=== PATIENT | male | born 1950 | race Caucasian/White ===

== ENCOUNTER 2016-08-08 13:46 | Emergency (ER) | payer MEDICARE, BC, OTHER ==
[2016-08-08 13:54] VITALS: RESP 18; TEMP 99.1
--- NOTE | 2016-08-08 14:41 | ED ---
General Adult HPI - General Chief complaint: Extremity Problem,Nontraumatic Stated complaint: Poss Blood Clot Time Seen by Provider: 08/08/16 14:15 Source: patient, RN notes reviewed, old records reviewed Mode of arrival: ambulatory Limitations: no limitations - History of Present Illness Initial comments: This is a 66-year-old male here for evaluation. This patient's presenting to ER for evaluation of right laboratory pain. Patient does have history of DVT concern of DVT in leg. Patient is alert centralis history, no recent surgeries. No shortness of breath or chest pain at this time. - Related Data Home Medications Medication Instructions Recorded Confirmed Aspirin EC [Ecotrin] 325 mg PO HS 08/08/16 08/08/16 Lisinopril [Zestril] 2.5 mg PO HS 08/08/16 08/08/16 Previous Rx's Medication Instructions Recorded Apixaban [Eliquis] 5 mg PO BID #28 tablet 08/08/16 Apixaban [Eliquis] 5 mg PO BID #60 tab 08/08/16 Allergies Allergy/AdvReac Type Severity Reaction Status Date / Time No Known Allergies Allergy Verified 08/08/16 15:15 Review of Systems ROS Statement: Those systems with pertinent positive or pertinent negative responses have been documented in the HPI. ROS Other: All systems not noted in ROS Statement are negative. Past Medical History Past Medical History: Coronary Artery Disease (CAD), Deep Vein Thrombosis (DVT) , Pulmonary Embolus (PE) History of Any Multi-Drug Resistant Organisms: None Reported Past Surgical History: Orthopedic Surgery Additional Past Surgical History / Comment(s): knee Past Psychological History: No Psychological Hx Reported Smoking Status: Never smoker Past Alcohol Use History: Rare Past Drug Use History: None Reported General Exam - General Exam Comments Initial Comments: Right lower extremity edema Limitations: no limitations General appearance: alert, in no apparent distress Head exam: Present: atraumatic, normocephalic, normal inspection Eye exam: Present: normal appearance, PERRL, EOMI. Absent: scleral icterus, conjunctival injection, periorbital swelling ENT exam: Present: normal exam, mucous membranes moist Neck exam: Present: normal inspection. Absent: tenderness, meningismus, lymphadenopathy Respiratory exam: Present: normal lung sounds bilaterally. Absent: respiratory distress, wheezes, rales, rhonchi, stridor Cardiovascular Exam: Present: regular rate, normal rhythm, normal heart sounds. Absent: systolic murmur, diastolic murmur, rubs, gallop, clicks GI/Abdominal exam: Present: soft, normal bowel sounds. Absent: distended, tenderness, guarding, rebound, rigid Extremities exam: Present: normal inspection, full ROM, normal capillary refill. Absent: tenderness, pedal edema, joint swelling, calf tenderness Back exam: Present: normal inspection Neurological exam: Present: alert, oriented X3, CN II-XII intact Psychiatric exam: Present: normal affect, normal mood Skin exam: Present: warm, dry, intact, normal color. Absent: rash Course Vital Signs 08/08/16 08/08/16 13:49 14:28 Temperature 99.1 F Pulse Rate 69 61 Respiratory 18 18 Rate Blood Pressure 123/72 134/78 O2 Sat by Pulse 96 95 Oximetry - Reevaluation(s) Reevaluation #1: 08/08/16 15:20 Patient informed of results of tests, questions answered Reevaluation #2: 08/08/16 15:20 Patient unsure of cause of prior DVT Medical Decision Making - Medical Decision Making 5 male here with right lower extremity edema and pain, positive DVT right lower extremity, patient will be discharged home on anticoagulation - Radiology Data Radiology results: report reviewed (Ultrasound positive for DVT right lower extremity), image reviewed Disposition Clinical Impression: Right leg DVT Disposition: HOME SELF-CARE Condition: Good Instructions: Deep Venous Thrombosis (ED) Referrals: Angi Gómez FNPBC [Primary Care Provider] - 1-2 days
--- NOTE | 2016-08-08 15:15 | US ---
EXAMINATION TYPE: US venous doppler duplex LE RT DATE OF EXAM: 08/08/2016 3:07 PM COMPARISON: NONE CLINICAL HISTORY: Pain. Edema right leg, intermittent right calf pain, history of DVT right leg, righ t knee replacement 3-4 years ago SIDE PERFORMED: Right TECHNIQUE: The lower extremity deep venous system is examined utilizing real time linear array sonog sulaiman with graded compression, doppler sonography and color-flow sonography. VESSELS IMAGED: External Iliac Vein (EIV) Common Femoral Vein Deep Femoral Vein Greater Saphenous Vein * Femoral Vein Popliteal Vein Small Saphenous Vein * Proximal Calf Veins (* superficial vessels) Right Leg: +Positive for DVT within right posterior proximal calf vein - unable to detect blood flow with incomplete compression at this site IMPRESSION: Findings compatible with right lower extremity DVT.
[2016-08-08] MEDS ORDERED: APIXABAN 5 MG TAB PO STA (15:19)
[2016-08-08 15:33] VITALS: BP 108/67; PULSE 58
== END 2016-08-08 15:33 | disposition home or self-care (01) ==
LOC: EC 13:46
DX: I82.401 Acute embolism and thrombosis of unspecified deep veins of right lower extremity (principal); I25.10 Atherosclerotic heart disease of native coronary artery without angina pectoris; Z86.711 Personal history of pulmonary embolism; Z79.82 Long term (current) use of aspirin
CPT/HCPCS: 99284

== ENCOUNTER → 2019-02-24 | Outpatient (CLI) | payer MEDICARE, BC ==
--- NOTE | 2019-02-24 10:06 | CT ---
EXAMINATION TYPE: CT chest wo con DATE OF EXAM: 02/24/2019 COMPARISON: 02/20/2012 HISTORY: Dyspnea CT DLP: [address] of the chest was performed with lung and mediastinal window settings submitted. The la ck of contrast limits evaluation of the vascular, mediastinal and parenchymal structures including th e upper abdomen. LUNGS: The lungs are clear and free of infiltrate. No atelectasis. No pulmonary nodule or mass is de tected. No pleural effusion. No CT evidence of interstitial lung disease. MEDIASTINUM/ETHAN: Thoracic aorta is of normal caliber with limited evaluation given lack of contrast . The heart is mildly enlarged. No evidence for mediastinal mass. No lymph nodes greater than 1cm . UPPER ABDOMEN: No significant abnormality is seen. OTHER: No significant other abnormality. Cardiomegaly. IMPRESSION: 1. No distinct abnormality to account for the patient's symptoms of dyspnea.
== END | disposition home or self-care (01) ==
LOC: RADCTMAIN 08:51
PROVIDERS: ATTEND Internal Medicine Critical Care Medicine
DX: R06.09 Other forms of dyspnea (principal)
CPT/HCPCS: 71250

== ENCOUNTER → 2019-10-06 | Outpatient (CLI) | payer MEDICARE, BC ==
[2019-10-06 08:41] LABS: African American GFR (CKD) >90 (>60 ml/min/1.73 sqM); Blood Urea Nitrogen 17 mg/dL (9-20); Non-African American GFR(CKD) 87 (>60 ml/min/1.73 sqM)
--- NOTE | 2019-10-06 09:26 | CT ---
CT CHEST FOR PULMONARY EMBOLISM. EXAMINATION TYPE: CT angio chest DATE OF EXAM: 10/06/2019 INDICATION: thoracic aortic aneurysm CT DLP: 1023.1 mGycm, Automated exposure control for dose reduction was used. CONTRAST: Patient injected with 100 mL of Isovue 370. COMPARISON: 02/24/2019 TECHNIQUE: CT of the chest is performed on a spiral scan at 2 mm thick sections. Study is performed with intravenous contrast timed for evaluation of the aorta. This will limit additional portions of the evaluation. 3-D MIP images reconstructed by the technologist are reviewed on the computer in the coronal and sagittal planes. Three-D reconstructed images are performed. FINDINGS: No mediastinal or hilar adenopathy enlarged by CT criteria is evident. The aorta at the aortic root is 4.3 cm. The aorta at the main pulmonary artery is 4.4 cm. Previous me asurement 4.5 cm. The aorta at the mid aortic arch is 3.4 cm. Aorta at the diaphragm is 2.6 cm. There is a three-vessel arch. No dissection is evident The main pulmonary artery diameter at the bifurcation is 3.5 cm. Lung windows are clear. Limited CT section through the upper abdomen are unremarkable. IMPRESSIONS: 1. Ascending thoracic aortic aneurysm with greatest AP diameter 4.4 cm.
== END | disposition home or self-care (01) ==
LOC: RADCTMAIN 07:57
PROVIDERS: ATTEND Nurse Practitioner Adult Health
DX: I71.2 Thoracic aortic aneurysm, without rupture (principal)
CPT/HCPCS: 82565; 84520; 71275; 36415; Q9967

== ENCOUNTER → 2019-12-10 | Outpatient (CLI) | payer MEDICARE, BC | END | disposition home or self-care (01) | LOC: LABPAT 07:04 | PROVIDERS: ATTEND Urology | DX: Z01.818 Encounter for other preprocedural examination (principal); C61 Malignant neoplasm of prostate | CPT/HCPCS: 36415; 86850; 86900; 86901 ==

== ENCOUNTER 2019-12-15 09:37 | Day surgery (SDC) | payer MEDICARE, BC ==
[2019-12-09 15:45] VITALS: BMI 38.7
--- NOTE | 2019-12-13 18:02 | P.GSHP ---
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 5 of 12 biopsies showed small foci of carcinoma. His PSA level at that time was 6.0. His Polaris score was 2.5. Alternative treatment options were reviewed, and he chose to proceed with active surveillance. He underwent a prostate ultrasound on 09/17/2019. The prostate volume was 28 mL. 9 of 12 biopsies were positive, including 5 of 6 on the right and 4 of 6 on the left. The Norton score was 6 and 7 (3+4). He was advised to undergo treatment and elected to undergo a robotic-assisted laparoscopic prostatectomy (RALP) and bilateral pelvic lymphadenectomy. He has been found to have a left inguinal hernia, and this will be repaired by Dr. Yancey. - Constitutional Constitutional: Denies chills, Denies fever - Genitourinary (Male) Genitourinary: Reports nocturia Past Medical History Past Medical History: Coronary Artery Disease (CAD), Cancer, Deep Vein Thrombosis (DVT), Pulmonary Embolus (PE) Additional Past Medical History / Comment(s): prostate cancer History of Any Multi-Drug Resistant Organisms: None Reported Past Surgical History: Joint Replacement, Orthopedic Surgery Additional Past Surgical History / Comment(s): knee arthroscopy, rt knee replacement Past Anesthesia/Blood Transfusion Reactions: Previous Problems w/ Anesthesia Additional Past Anesthesia/Blood Transfusion Reaction / Comment(s): needed inhaler during arthroscopic procedure Smoking Status: Never smoker - Past Family History Father Family Medical History: Cancer, Coronary Artery Disease (CAD), CVA/TIA Additional Family Medical History / Comment(s): prostate cancer Mother Family Medical History: CVA/TIA Additional Family Medical History / Comment(s): aneurysm Brother(s) Family Medical History: Cancer Additional Family Medical History / Comment(s): prostate cancer Medications and Allergies Home Medications Medication Instructions Recorded Confirmed Type Apixaban [Eliquis] 5 mg PO BID #28 tablet 08/08/16 12/09/19 Rx lisinopriL [Zestril] 2.5 mg PO DAILY 08/08/16 12/09/19 History Cholecalciferol [Vitamin D3 (25 2,000 unit PO DAILY 08/25/20 08/25/20 History Mcg = 1000 Iu)] Allergies Allergy/AdvReac Type Severity Reaction Status Date / Time No Known Allergies Allergy Verified 12/09/19 15:30 Surgical - Exam - General well developed, well nourished, no distress - Neck no masses, trachea midline - Respiratory normal respiratory effort - Abdomen Abdomen: soft, non tender, no guarding, no rigid, no rebound Hernia: inguinal - Genitourinary normal penis with no external lesions, testicles non-tender - Rectum Rectum: normal sphincter tone, no masses, other (Prostate 30 g, smooth) - Psychiatric oriented to time, oriented to person, oriented to place, speech is normal, memory intact Assessment and Plan (1) Malignant neoplasm of prostate Status: Acute Code(s): C61 - MALIGNANT NEOPLASM OF PROSTATE SNOMED Code(s): 153716931 Plan: RALP with bilateral pelvic lymphadenectomy. The procedure has been reviewed in detail with the patient and his family. They are aware of potential risks, which include anesthesia, bleeding, infection, bowel injury, lymphocele, urinary leak, vesical neck contracture, and urethral stricture. The possibility of post-prostatectomy urinary incontinence was discussed in great detail. A partial nerve sparing procedure will be performed, but despite this the patient was advised that he will likely experience erectile dysfunction following the procedure. He is aware of the possible need to convert to an open procedure, as well as the possible need for adjuvant therapy.
[~2019-12-15 09:37] MED LIST: ACETAMINOPHEN TAB 500 MG TAB PO ONE; HEPARIN SODIUM,PORCINE 5,000 UNIT/ML 1 ML VIAL SQ ONE
[2019-12-15] MEDS ORDERED: HEPARIN SODIUM,PORCINE 5,000 UNIT/ML 1 ML VIAL ONE (10:23)
[2019-12-15] MEDS ORDERED: ONDANSETRON 4 MG/2 ML VIAL ONE (10:24)
[2019-12-15] MEDS ORDERED: ACETAMINOPHEN TAB 500 MG TAB ONE (10:24)
[2019-12-15] MEDS ORDERED: LACTATED RINGERS 1,000 ML IV ONE ×2 (10:30→10:36)
[2019-12-15] MEDS ORDERED: ONDANSETRON 4 MG/2 ML VIAL IVP ONE (10:37)
[2019-12-15] MEDS ORDERED: DEXAMETHASONE SOD PHOSPHATE 10 MG/ML 1 ML VIAL IV ONE (10:38)
[2019-12-15] MEDS ORDERED: MIDAZOLAM 2 MG/2 ML VIAL ONE (12:18)
[2019-12-15] MEDS ORDERED: PROPOFOL 10 MG/ML 20 ML VIAL IV ONE (12:18)
[2019-12-15] MEDS ORDERED: ROCURONIUM BROMIDE 10 MG/ML 5 ML VIAL IV ONE (12:18)
[2019-12-15] MEDS ORDERED: NEOSTIGMINE 1 MG/ML 10 ML VIAL ONE (12:18)
[2019-12-15] MEDS ORDERED: LIDOCAINE 1% INJ 10MG/ML (20 ML MDV) ONE (12:18)
[2019-12-15] MEDS ORDERED: SUCCINYLCHOLINE CHLORIDE VIAL 200 MG/10 ML VIAL IV ONE (12:18)
[2019-12-15] MEDS ORDERED: HYDROmorphone (PF) 1 MG/ML ONE (12:18)
[2019-12-15] MEDS ORDERED: fentaNYL (PF) 50 MCG/ML 2 ML AMP ONE (12:18)
[2019-12-15] MEDS ORDERED: GLYCOPYRROLATE 0.2 MG/ML 2 ML VIAL ONE (12:18)
[2019-12-15] MEDS ORDERED: BUPIVACAINE (PF) 0.25% 30 ML VIAL SQ ONE ×2 (13:00→18:25)
--- NOTE | 2019-12-15 18:14 | P.OP ---
Date of Procedure: 12/15/19 Procedure(s) Performed: PREOPERATIVE DIAGNOSIS: Left inguinal hernia POSTOPERATIVE DIAGNOSIS: Bilateral indirect inguinal hernia PROCEDURE: Laparoscopic repair lateral inguinal hernia with the da Gunnar robot assistance with mesh SURGEON: Naye EBL: Minimal ANESTHESIA: General COMPLICATIONS: None OPERATIVE PROCEDURE: The case was initiated by Dr. Tong. I was present after insufflation was achieved. Together we determined the appropriate location for the peritoneal incision which was for the most part horizontally fashioned above the bladder. Dissection of the preperitoneal space took place down to level of the indirect inguinal hernias by Dr. Tong. The right and left indirect hernia sacs were dissected by myself down to the level of the common iliac vessels. Following that the prostatectomy took place and was completed. At that time the 15 x 10 cm appropriate mesh was utilized and placed overlying the internal inguinal ring bilaterally. No sutures were utilized. The peritoneal flap was then closed using 2 separate 9 inch 20V lock sutures in a running fashion. Both hernia sacs were incorporated into the peritoneal closure to help reduce the risk of recurrence. 2 small defects were closed using 3-0 Vicryl sutures. Removal of the specimen and formal closure will be dictated separately by urology. DISPOSITION: Stable to recovery room
[2019-12-15] MEDS ORDERED: HYDROmorphone 1 MG/ML 1 ML SYRINGE IVP PRN (18:37)
[2019-12-15] MEDS ORDERED: ONDANSETRON 4 MG/2 ML VIAL IVP PRN (18:37)
[2019-12-15] MEDS ORDERED: KETOROLAC 15 MG/ML 1 ML VIAL IVP PRN (18:37)
[2019-12-15] MEDS ORDERED: ACETAMINOPHEN TAB 325 MG TAB PO PRN (18:37)
[2019-12-15] MEDS ORDERED: HYDROmorphone 1 MG/ML 1 ML SYRINGE IVP ONE ×2 (19:20→19:25)
--- NOTE | 2019-12-15 19:22 | P.OP ---
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 5 of 12 biopsies showed small foci of carcinoma. His PSA level at that time was 6.0. His Polaris score was 2.5. Alternative treatment options were reviewed, and he chose to proceed with active surveillance. He underwent a prostate ultrasound on 09/17/2019. The prostate volume was 28 mL. 9 of 12 biopsies were positive, including 5 of 6 on the right and 4 of 6 on the left. The Moose score was 6 and 7 (3+4). He was advised to undergo treatment and elected to undergo a robotic-assisted laparoscopic prostatectomy (RALP) and bilateral pelvic lymphadenectomy. He has been found to have a left inguinal hernia, and this will be repaired by Dr. Yancey. Operative Findings: No evidence of extraprostatic disease. Description of Procedure: The patient was taken in the operating room and placed in the dorsal lithotomy position, with his legs supported in Randy stirrups. He was carefully positioned on a beanbag for stability. The abdomen and external genitalia were prepped and draped sterilely. A Anaya catheter was inserted. The Veress needle was passed through the anterior abdominal wall immediately cephalad to the umbilicus, and insufflation was performed to a pressure of 20 mm Hg. Once insufflation was performed, the Veress needle was removed and a supraumbilical incision was made, through which a 12 mm camera port was placed. Under camera guidance, 3 8 mm robotic ports were placed, 2 on the left and one on the right. An additional 12 mm port was placed on the right lateral side for use as an title assistant port. A 5 mm port was placed to the right of the camera port for suction. The patient was placed in Trendelenburg position, and docking was then performed to the da Gunnar system utilizing a 4-arm approach. The abdomen was examined. The sigmoid colon was mobilized out of the pelvis. Pelvic adhesions were lysed to allow the small bowel to be mobilized out of the pelvis. The patient was noted to have bilateral inguinal hernias. The peritoneum was incised inferiorly in the midline, at the level of the anterior abdominal wall. This incision was extended laterally on each side, encompassing the internal inguinal rings. The bladder flap was then taken down. The endopelvic fascia was opened bilaterally, and muscular attachments from the urogenital diaphragm were swept away from the prostate. Bilateral pelvic lymphadenectomies were performed in the standard fashion. The peritoneal incisions were extended in a cephalad direction, and the vas deferens were divided bilaterally. Margins of dissection were the bifurcation of the iliac vessels proximally, the circumflex iliac vein distally, the external iliac artery laterally, and the obturator nerve medially. A combination of sharp and blunt dissection was used. Care was taken to avoid any neurovascular injury, and the use of monopolar electrocautery was avoided immediately adjacent to adelfo rovascular structures. The lymphatic package was clipped distally. No enlarged lymph nodes were encountered. There were no complications. The vesical neck was incised transversely, down to the lumen. The Anaya catheter was brought out through the anterior vesical neck incision and was used for traction. The posterior aspect of the vesical neck was incised, such that the full-thickness of the vesical neck was divided. The anterior layer of the Denonvilliers fascia was incised, exposing the vas deferens. Each were isolated and divided. Next, each of the seminal vesicles were dissected away from adjacent tissues, and vascular attachments were cauterized and divided. The posterior leaf of Denonvilliers fascia was incised transversely, allowing entry into the plane between the prostate and rectum. With lateral spreading, this plane was developed down to the apex. This exposed the lateral vascular pedicles bilaterally. These were clipped and divided in an antegrade fashion, down to the apex. The use of electrocautery was avoided to prevent thermal damage to the nerves. However, the plane of dissection was not immediately adjacent to the prostate. The remaining apical attachments were swept away from the prostate. The dorsal venous complex was incised, as well as periurethral tissue. At this point, only the urethra remained intact. This was transected immediately distal to the prostatic apex using cold scissors. The specimen was placed within a specimen bag. The dorsal venous complex was sutured using a V-Loc suture in a running fashion. A second V-Loc suture was then used to place the Daniel stitch, incorporating the rhabdosphincter and the edge of Denonvilliers fascia. This allowed the bladder to be taken down to the urethra, leaving the vesical neck immediately adjacent to the urethra. The vesicourethral anastomosis was then performed using a V-Loc suture in a running fashion. After completing the anastomosis, an 18-Croatian Anaya catheter was placed and approximately 150 mL of 0.9 normal saline were instilled into the bladder. No extravasation of irrigant from the vesicourethral anastomosis was noted. Tisseel was sprayed into the pelvis over the vascular pedicles, dorsal vein, and vesicourethral anastomosis. Dr. Yancey placed mesh over the bilateral inguinal hernias, and he then closed the peritoneum over the mesh. This will be dictated separately. The patient was returned to the supine position. Undocking was performed, and the specimen bag sutures were passed through the camera port. After removing all the ports and allowing all of the CO2 to be released from the peritoneal cavity, the camera port incision was enlarged to allow removal of the surgical specimen. The fascia of this incision was then closed using 0 PDS suture in a running fashion. Each of the skin incisions were then closed using 4-0 Monocryl suture in a subcuticular fashion. Marcaine was injected at each of the incision sites. Dermabond was applied to each incision. The Anaya catheter was connected to gravity drainage. All sponge and needle counts were correct. The patient tolerated the procedure well was taken to the recovery room in stable condition.
[2019-12-15] MEDS: HEPARIN SODIUM,PORCINE 5,000 UNIT/ML 1 ML VIAL SQ SCH (22:20)
[2019-12-15] MEDS: DEXTROSE 5%-0.45% NACL 1,000 ML IV SCH (22:20)
[2019-12-16] MEDS: DEXTROSE 5%-0.45% NACL 1,000 ML IV SCH ×2 (02:57→08:40)
[2019-12-16] MEDS: HEPARIN SODIUM,PORCINE 5,000 UNIT/ML 1 ML VIAL SQ SCH (08:40)
[2019-12-16 09:32] VITALS: BP 128/69; PULSE 81; RESP 20; TEMP 97.9
--- NOTE | 2019-12-16 12:55 | P.PN ---
Subjective Progress Note Date: 12/16/19 Principal diagnosis: Bilateral inguinal hernia Patient doing well today. Complains of minimal discomfort. Some coughing. Urinary catheter with clear urine. Objective - Vital Signs Vital signs: Vital Signs Temp 97.9 F 12/16/19 07:00 Pulse 81 12/16/19 07:00 Resp 20 12/16/19 07:00 BP 128/69 12/16/19 07:00 Pulse Ox 98 12/16/19 07:00 Intake & Output 12/15/19 12/16/19 12/16/19 18:59 06:59 18:59 Intake Total 3458 583 3545 Output Total 300 640 Balance 1150 60 1000 Weight 115.5 kg 115.5 kg Intake: IV 1912 627 1570 Dextrose 5%-0.45% NaCl 1, 1000 000 ml @ 125 mls/hr IV . Q8H [facility] Rx#:[id number] Output: Urine 640 Estimated Blood Loss 300 Other: Voiding Method Indwelling Catheter - Exam Abdomen: Soft, nondistended, incisions clean and dry, mild tenderness Assessment and Plan Plan: Overall patient doing well. Stable for discharge from my point of view. He and I discussed avoiding heavy lifting for the next 6 weeks. May shower from my point of view. Follow-up with myself as needed.
--- NOTE | 2019-12-16 13:10 | P.DS ---
Providers Expected date of discharge: 12/16/19 Attending physician: Trent Tong Consults: 12/15/19 18:10 Consult Physician Routine Consulting Provider: Jay Yancey Reason/Comments: Hernia repair Do you want consulting provider notified?: Already Contacted Primary care physician: Adalberto Noel MD - Discharge Diagnosis(es) (1) Malignant neoplasm of prostate Current Visit: No Status: Acute Hospital Course: On the day of admission, the patient underwent a robotic-assisted laparoscopic prostatectomy (RALP) with bilateral pelvic lymphadenectomy. Bilateral hernia repairs were performed by Dr. Yancey. The postoperative course was unremarkable. He remained afebrile with stable vital signs. He did experience some dizziness when he attempted to get up the night following surgery, but he had no dizziness on the first postoperative day. He was tolerating diet. His only sources of discomfort were his lower back, along with a sore throat. He denied abdominal pain. The incisions were clean and dry. The Anaya catheter was draining clear yellow urine. Procedures: RALP, bilateral pelvic lymph node dissection, bilateral inguinal hernia repair on 12/15/2019. Patient Condition at Discharge: Good Plan - Discharge Summary Discharge Rx Participant: Yes New Discharge Prescriptions: New Ciprofloxacin HCl [Cipro] 250 mg PO Q12HR #6 tablet Hydrocodone/Acetaminophen [[place] 5-325] 1 - 2 each PO Q4HR PRN #6 tab PRN Reason: Pain traMADol HCL 50 mg PO Q4-6H PRN #6 tablet PRN Reason: Moderate To Severe Pain No Action lisinopriL [Zestril] 2.5 mg PO DAILY Apixaban [Eliquis] 5 mg PO BID #28 tablet Cholecalciferol [Vitamin D3 (25 Mcg = 1000 Iu)] 2,000 unit PO DAILY Discharge Medication List Apixaban [Eliquis] 5 mg PO BID #28 tablet 08/08/16 [Rx] lisinopriL [Zestril] 2.5 mg PO DAILY 08/08/16 [History] Cholecalciferol [Vitamin D3 (25 Mcg = 1000 Iu)] 2,000 unit PO DAILY 12/09/19 [History] Ciprofloxacin HCl [Cipro] 250 mg PO Q12HR #6 tablet 12/16/19 [Rx] Hydrocodone/Acetaminophen [[place] 5-325] 1 - 2 each PO Q4HR PRN #6 tab 12/16/19 [Rx] traMADol HCL 50 mg PO Q4-6H PRN #6 tablet 12/16/19 [Rx] Follow up Appointment(s)/Referral(s): Jay Yancey MD [Medical Doctor] - As Needed Trent Tong MD [STAFF PHYSICIAN] - 1 Week Patient Instructions/Handouts: Laparoscopic Herniorrhaphy (DC), Robot Assisted Laparoscopic Prostatectomy (DC) Activity/Diet/Wound Care/Special Instructions: Discharge home with Anaya catheter. Instruct patient to use overnight drainage bag as well as urinary leg bag. Okay to shower. Diet as tolerated. No lifting, driving, or strenuous activity. Reassure patient that abdominal wall ecchymosis and penoscrotal swelling are normal. Instruct patient to begin taking antibiotics one day prior to Anaya catheter removal. Discharge Disposition: HOME SELF-CARE
== END 2019-12-16 16:44 | disposition home or self-care (01) ==
LOC: OR 09:37 → 4SSUR 19:00 → OR 12-16 16:44
PROVIDERS: ATTEND Urology
DX: C61 Malignant neoplasm of prostate (principal); K40.20 Bilateral inguinal hernia, without obstruction or gangrene, not specified as recurrent; I25.10 Atherosclerotic heart disease of native coronary artery without angina pectoris; J44.9 Chronic obstructive pulmonary disease, unspecified; K21.9 Gastro-esophageal reflux disease without esophagitis; Z86.718 Personal history of other venous thrombosis and embolism; Z86.711 Personal history of pulmonary embolism; Z79.01 Long term (current) use of anticoagulants; Z79.899 Other long term (current) drug therapy; Z96.651 Presence of right artificial knee joint; Z98.890 Other specified postprocedural states; Z80.42 Family history of malignant neoplasm of prostate
CPT/HCPCS: 86900; 86901; 86850; 88307; 88309; 36415; 55866; 38571; 49650; C1762; C1781; J1644 ×2; J1100; J0690; J2405; J1170 ×2

== ENCOUNTER → 2020-10-13 | Outpatient (CLI) | payer MEDICARE, BC ==
[2020-10-13 08:41] LABS: African American GFR (CKD) >90 (>60 ml/min/1.73 sqM); Blood Urea Nitrogen 23 mg/dL (9-20); Non-African American GFR(CKD) 89 (>60 ml/min/1.73 sqM)
--- NOTE | 2020-10-13 11:14 | CT ---
CT CHEST FOR PULMONARY EMBOLISM. EXAMINATION TYPE: CT angio chest DATE OF EXAM: 10/13/2020 INDICATION: Follow up aneurysm CT DLP: 635.4 mGycm, Automated exposure control for dose reduction was used. CONTRAST: Patient injected with 100 mL of Isovue 370. COMPARISON: 10/06/2019 TECHNIQUE: CT of the chest is performed on a spiral scan at 2 mm thick sections. Study is performed with intravenous contrast timed for evaluation for aortic evaluation.. This will limit additional po rtions of the evaluation. 3-D MIP images reconstructed by the technologist are reviewed on the compu ter in the coronal and sagittal planes. FINDINGS: There is a three-vessel arch. The aorta tapers normally to its visualized course. No dissection is ev ident. The aorta at the aortic root measures 3.4 cm. The aorta at the bifurcation measures 4.3 cm. Th e aorta at the aortic arch measures 3.2 cm. The aorta at the diaphragm measures 2.5 cm. No mediastinal or hilar adenopathy enlarged by CT criteria is evident. The ascending aorta diameter at the level of the main pulmonary artery is 4.3 cm. The main pulmonary artery diameter at the bifur cation is 3.2 cm. Lung windows are clear. Limited CT section through the upper abdomen are unremarkable. IMPRESSIONS: 1. Ascending thoracic aortic aneurysm measuring 4.3 cm. This is stable from the comparison.
== END | disposition home or self-care (01) ==
LOC: RADCTMAIN 07:58
PROVIDERS: ATTEND Internal Medicine Interventional Cardiology
DX: I71.2 Thoracic aortic aneurysm, without rupture (principal)
CPT/HCPCS: 82565; 84520; 71275; 36415; Q9967

== ENCOUNTER → 2022-09-19 | Outpatient (CLI) | payer MEDICARE, BC ==
[2022-09-19 10:07] LABS: African American GFR (CKD) >90 (>60 ml/min/1.73 sqM); Blood Urea Nitrogen 17 mg/dL (9-20); Non-African American GFR(CKD) 85 (>60 ml/min/1.73 sqM)
--- NOTE | 2022-09-19 11:10 | CT ---
EXAMINATION TYPE: CT angio chest DATE OF EXAM: 09/19/2022 10:50 AM COMPARISON: 10/13/2020 HISTORY: Thoracic aortic aneurysm CT DLP: 532.4 mGycm Automated exposure control for dose reduction was used. CONTRAST: CTA scan of the thorax is performed with IV Contrast, patient injected with 100 mL of Isovue 370, pul monary embolism protocol. . FINDINGS: LUNGS: The lungs are grossly clear, there is no concerning parenchymal mass or nodule identified. T here is no pleural effusion or pneumothorax seen. The tracheobronchial tree is patent. Groundglass c hanges are likely in the basis of respiratory motion and atelectasis. MEDIASTINUM: There is satisfactory enhancement of the pulmonary artery and its branches, there is no CT evidence for pulmonary embolism. There are no greater than 1 cm hilar or mediastinal lymph nodes. No pericardial effusion is seen. The heart is enlarged with no overt failure. Mild coronary artery calcification. AORTA: Ascending aorta measures a maximum mention of 4.2 x 4.1 cm. Descending thoracic aorta normal c aliber. No significant atherosclerotic changes. OTHER: Hypertrophic and degenerative changes spine. Trace gynecomastia. Small hiatal hernia. Upper p ole 1 cm hypodense renal lesion measures 11 Hounsfield units likely related to simple cyst. IMPRESSION: 1. STABLE MILD ANEURYSMAL DILATION ASCENDING AORTA MEASURING 4.2 X 4.1 CM SIMILAR PRIOR EXAM WITH NO SIGNIFICANT INTERVAL CHANGE. 2. CARDIOMEGALY WITH MILD CORONARY ARTERY CALCIFICATION. 3. GROUNDGLASS CHANGES WITHIN THE LUNGS BILATERALLY FAVORED RESPIRATORY MOTION ATELECTASIS OVER PNEUM ONITIS CORRELATE CLINICALLY.
== END | disposition home or self-care (01) ==
LOC: RADCTMAIN 09:28
PROVIDERS: ATTEND Internal Medicine Interventional Cardiology
DX: I71.21 Aneurysm of the ascending aorta, without rupture (principal); I25.10 Atherosclerotic heart disease of native coronary artery without angina pectoris; R91.8 Other nonspecific abnormal finding of lung field
CPT/HCPCS: 82565; 84520; 71275; 36415; Q9967